=== PATIENT | male | born 1965 | race Caucasian/White ===

== ENCOUNTER → 2016-08-22 | Outpatient (CLI) | payer BC, OTHER ==
[~2016-08-22] VITALS: Ht 180.3 cm; Wt 94.8 kg
[~2016-08-22] MED LIST: BACT800T5 PO; LANS15CA PO; LIDOCAINE 2% INJ 100 MG/5 ML SDV (FOR ANES.) As Ordered ONE; LYRI75CA; LYRI75CA OR; LYRI75CA PO; MULTCAP PO; MULTIVIT PO; NS 1,000 ML IV SCH; OMEP40CA2 PO; PREV30TA; PREV30TA OR; PROPOFOL 200 MG/20 ML VIAL As Ordered ONE; TRAM50TA2; TRAM50TA2 OR; TRAM50TA2 PO
--- NOTE | 2016-08-22 09:08 | ROOR ---
Patient Name: Saul Millan Procedure Date: 08/22/2016 8:50 AM Date of : 1965 Age: 50 Room: [facility] Gender: Male Note Status: Finalized Procedure: Upper GI endoscopy Indications: Heartburn Providers: Fei Allen MD Referring MD: Ian Jacobs MD Requesting Provider: Medicines: Monitored Anesthesia Care Complications: No immediate complications. Procedure: Pre-Anesthesia Assessment: - The heart rate, respiratory rate, oxygen saturations, blood pressure, adequacy of pulmonary ventilation, and response to care were monitored throughout the procedure. The Endoscope was introduced through the mouth, and advanced to the second part of duodenum. The upper GI endoscopy was accomplished without difficulty. The patient tolerated the procedure well. Findings: The Z-line was regular and was found 41 cm from the incisors. The exam was otherwise without abnormality. No other significant abnormalities were identified in a careful examination of the stomach. The exam of the duodenum was otherwise normal. Impression: - Z-line regular, 41 cm from the incisors. - The examination was otherwise normal. - No specimens collected. - The examination was otherwise normal. Recommendation: - Patient has a contact number available for emergencies. The signs and symptoms of potential delayed complications were discussed with the patient. Return to normal activities tomorrow. Written discharge instructions were provided to the patient. - High fiber diet. - Discharge patient to home. - Follow an antireflux regimen. - Continue present medications. - Return to referring physician. - The findings and recommendations were discussed with the patient's family. Fei Allen MD Fei Allen MD 08/22/2016 9:07:45 AM This report has been signed electronically. Number of Addenda: 0 Note Initiated On: 08/22/2016 8:50 AM Estimated Blood Loss: Estimated blood loss: none.
--- NOTE | 2016-08-22 09:19 | ROOR ---
Patient Name: Saul Millan Procedure Date: 08/22/2016 8:51 AM Date of : 1965 Age: 50 Room: [facility] Gender: Male Note Status: Finalized Procedure: Colonoscopy to Cecum Indications: Screening for colorectal malignant neoplasm Providers: Fei Allen MD Referring MD: Ian Jacobs MD Requesting Provider: Medicines: Monitored Anesthesia Care Complications: No immediate complications. Procedure: Pre-Anesthesia Assessment: - The heart rate, respiratory rate, oxygen saturations, blood pressure, adequacy of pulmonary ventilation, and response to care were monitored throughout the procedure. The Colonoscope was introduced through the anus and advanced to the cecum, identified by appendiceal orifice and ileocecal valve. The colonoscopy was performed without difficulty. The patient tolerated the procedure well. The quality of the bowel preparation was excellent. Findings: The perianal and digital rectal examinations were normal. Scattered small-mouthed diverticula were found in the recto-sigmoid colon, sigmoid colon and descending colon. The exam was otherwise without abnormality on direct and retroflexion views. Impression: - Diverticulosis in the recto-sigmoid colon, in the sigmoid colon and in the descending colon. - The examination was otherwise normal on direct and retroflexion views. - No specimens collected. - The exam was otherwise normal to the cecum. Recommendation: - Patient has a contact number available for emergencies. The signs and symptoms of potential delayed complications were discussed with the patient. Return to normal activities tomorrow. Written discharge instructions were provided to the patient. - High fiber diet. - Discharge patient to home. - Continue present medications. - Repeat colonoscopy in 10 years for screening purposes. - Return to referring physician. - The findings and recommendations were discussed with the patient's family. Fei Allen MD Fei Allen MD 08/22/2016 9:19:27 AM This report has been signed electronically. Number of Addenda: 0 Note Initiated On: 08/22/2016 8:51 AM Estimated Blood Loss: Estimated blood loss: none.
[2016-08-22 09:40] VITALS: BP 133/91
== END ==
LOC: M OPP 08:17
PROVIDERS: ATTEND Internal Medicine Gastroenterology
DX: Z12.11 Encounter for screening for malignant neoplasm of colon (principal); K57.30 Diverticulosis of large intestine without perforation or abscess without bleeding; R12 Heartburn; K21.9 Gastro-esophageal reflux disease without esophagitis; M54.9 Dorsalgia, unspecified; Z57.8 Occupational exposure to other risk factors; Z80.9 Family history of malignant neoplasm, unspecified; Z79.899 Other long term (current) drug therapy
CPT/HCPCS: 43235; 99156; 99157; G0121

== ENCOUNTER 2017-09-04 13:12 | Emergency (ER) | payer OTHER, BC | END 2017-09-04 15:03 | disposition home or self-care (01) | LOC: M ED 13:12 | DX: S40.012A Contusion of left shoulder, initial encounter (principal); X58.XXXA Exposure to other specified factors, initial encounter; Y92.9 Unspecified place or not applicable; Y93.01 Activity, walking, marching and hiking; Y99.0 Civilian activity done for income or pay; G89.29 Other chronic pain; Z79.899 Other long term (current) drug therapy | CPT/HCPCS: 99283 ==